=== PATIENT | female | born 1960 | race Two or more races ===

== ENCOUNTER 2016-07-23 14:27 | Emergency (ER) | payer OTHER ==
--- NOTE | 2016-07-23 14:52 | ER Document Report ---
ED Medical Screen (RME) - General Stated Complaint: FLU LIKE SYMPTOMS Notes: 56 yo female c/o fever, sore throat, headache x 2 days. no vomiting or diarrhea. + sick contacts at home - Related Data Allergies/Adverse Reactions: No Known Allergies Allergy (Unverified 06/23/13 19:14) Past Medical History Pulmonary Medical History: Denies: Hx Tuberculosis Physical Exam - Vital signs Vitals: Temp Pulse Resp BP Pulse Ox 97.9 F 69 16 136/58 H 97 07/23/16 14:47 07/23/16 14:47 07/23/16 14:47 07/23/16 14:47 07/23/16 14:47 Course - Vital Signs Vital signs: Temp Pulse Resp BP Pulse Ox 97.9 F 69 16 136/58 H 97 07/23/16 14:47 07/23/16 14:47 07/23/16 14:47 07/23/16 14:47 07/23/16 14:47
[2016-07-23] MEDS ORDERED: IBUPROFEN 600 MG TABLET PO ONE (20:05)
[2016-07-23] MEDS ORDERED: OXYMETAZOLINE HCL 0.05% NASAL SPRAY 15 ML BOTTLE NASL ONE (20:05)
--- NOTE | 2016-07-23 20:06 | ER Document Report ---
ED General - General Chief Complaint: Pain All Over Stated Complaint: FLU LIKE SYMPTOMS Notes: Patient is a 56-year-old female presents with 2 days of cough, headache, nasal congestion and sore throat. Multiple sick contacts with similar illness. Has a history of similar symptoms in the past with upper respiratory infections. She has not had any weakness, numbness, altered mental status or fever. No vomiting or diarrhea. She has not tried anything for relief of her symptoms and nothing worsens or symptoms. She has not seen her primary care physician regarding today's concerns. TRAVEL OUTSIDE OF THE [place] IN LAST 30 DAYS: No - Related Data Allergies/Adverse Reactions: No Known Allergies Allergy (Verified 07/23/16 15:07) Past Medical History - General Information source: Patient - Social History Smoking Status: Current Every Day Smoker Chew tobacco use (# tins/day): No Frequency of alcohol use: None Drug Abuse: None Lives with: Spouse/Significant other Family History: Reviewed & Not Pertinent Patient has suicidal ideation: No Patient has homicidal ideation: No - Past Medical History Cardiac Medical History: Reports: Hx Hypertension Pulmonary Medical History: Denies: Hx Tuberculosis Renal/ Medical History: Denies: Hx Peritoneal Dialysis Surgical Hx: Negative Review of Systems - Review of Systems Notes: Constitutional: Negative for fever. HENT: Positive for sore throat. Eyes: Negative for visual changes. Cardiovascular: Negative for chest pain. Respiratory: Negative for shortness of breath. Positive for cough Gastrointestinal: Negative for abdominal pain, vomiting or diarrhea. Genitourinary: Negative for dysuria. Musculoskeletal: Negative for back pain. Skin: Negative for rash. Neurological: Negative for headaches, weakness or numbness. 10 point ROS negative except as marked above and in HPI. Physical Exam - Vital signs Vitals: Temp Pulse Resp BP Pulse Ox 97.9 F 69 16 136/58 H 97 07/23/16 14:47 07/23/16 14:47 07/23/16 14:47 07/23/16 14:47 07/23/16 14:47 Interpretation: Normal Notes: PHYSICAL EXAMINATION: GENERAL: Well-appearing, well-nourished and in no acute distress. HEAD: Atraumatic, normocephalic. EYES: Pupils equal round and reactive to light, extraocular movements intact, sclera anicteric, conjunctiva are normal. ENT: nares patent, oropharynx clear without exudates. Moist mucous membranes. NECK: Normal range of motion, supple without lymphadenopathy LUNGS: Breath sounds clear to auscultation bilaterally and equal. No wheezes rales or rhonchi. HEART: Regular rate and rhythm without murmurs ABDOMEN: Soft, nontender, normoactive bowel sounds. No guarding, no rebound. No masses appreciated. EXTREMITIES: Normal range of motion, no pitting or edema. No cyanosis. NEUROLOGICAL: No focal neurological deficits. Moves all extremities spontaneously and on command. PSYCH: Normal mood, normal affect. SKIN: Warm, Dry, normal turgor, no rashes or lesions noted. Course - Re-evaluation Re-evalutation: 07/23/16 20:05 Presentation is most consistent with a viral upper respiratory infection. Patient is overall well appearance, vitals within normal limits, well-hydrated. Patient denies any, neck pain, and has no evidence of meningismus on examination. Lungs are clear bilaterally. No evidence of respiratory distress. Based on clinical exam and history, I do not suspect an acute pneumonia, meningitis, strep pharyngitis, or an acute encephalitis. No laboratory or imaging testing is indicated at this time. Rapid strep and influenza that were obtained in triage are both negative. At this time will discharge with return precautions and follow-up recommendations. Verbal discharge instructions given a the bedside and opportunity for questions given. Medication warnings reviewed. Patient is in agreement with this plan and has verbalized understanding of return precautions and the need for primary care follow-up in the next 24-72 hours. - Vital Signs Vital signs: Temp Pulse Resp BP Pulse Ox 98.1 F 74 16 132/74 H 99 07/23/16 20:00 07/23/16 20:00 07/23/16 20:00 07/23/16 20:00 07/23/16 20:00 Discharge - Discharge Clinical Impression: Upper respiratory infection Qualifiers: URI type: unspecified URI Qualified Code(s): J06.9 - Acute upper respiratory infection, unspecified Condition: Good Disposition: HOME, SELF-CARE Additional Instructions: Your symptoms are most likely due to a viral infection it should resolve over the next 7-14 days. You should take [id number] guanfacine per bottle instructions to help thin the mucus. For nasal congestion: I would recommend that you get [id number] oxymetazoline also known is afrin. Use only per bottle instructions and be sure to never use this for more than 3 days if you can develop severe rebound congestion. You may also use tylenol or ibuprofen as needed for aches and thorat discomfort. Please be sure to drink plenty of fluids and get rest. Return to the emergency department he began having difficulty breathing, chest pain, persistent vomiting, or any other symptoms that are concerning to you. Forms: Return to Work
[2016-07-23 20:31] VITALS: BP 132/74
== END 2016-07-23 20:32 | disposition home or self-care (01) ==
LOC: ER 14:27
DX: J06.9 Acute upper respiratory infection, unspecified (principal); M79.1 Myalgia; R51 Headache; R09.81 Nasal congestion; F17.200 Nicotine dependence, unspecified, uncomplicated; I10 Essential (primary) hypertension
CPT/HCPCS: 99283; 87070; 87880; 87077; 87804; J3490